=== PATIENT | male | born 2000 | race Two or more races ===

== ENCOUNTER 2023-09-25 18:18 | Emergency (ER) | payer SELFPAY ==
[~2023-09-25] VITALS: Ht 180.3 cm; Wt 68.0 kg
[2023-09-25 18:25] VITALS: TEMP 98.4; O2SAT 99
[2023-09-25] MEDS ORDERED: ASPI1TAB8 PO (21:04)
[2023-09-25] MEDS ORDERED: KETOROLAC 60MG/2ML VIAL IM ONE (21:15)
[2023-09-25 21:39] VITALS: BP 135/95; PULSE 79; RESP 20
== END 2023-09-25 21:44 | disposition home or self-care (01) ==
LOC: ER 18:18
DX: R51.9 Headache, unspecified (principal); R06.02 Shortness of breath; R42 Dizziness and giddiness
CPT/HCPCS: 99283; 96372; J1885

== ENCOUNTER 2025-03-05 18:14 | Emergency (ER) | payer SELFPAY ==
[~2025-03-05] VITALS: Ht 175.3 cm; Wt 75.0 kg
[~2025-03-05 18:14] MED LIST: ASPI1TAB8 PO
[2025-03-05 18:29] VITALS: TEMP 37.2; O2SAT 98
[2025-03-05] MEDS ORDERED: FAMOTIDINE 20MG/2ML VIAL IV STA (20:05)
[2025-03-05] MEDS ORDERED: MORPHINE SULFATE 4 MG/ML INJ (FOR IV/IM USE) IV STA (20:05)
[2025-03-05] MEDS ORDERED: ONDANSETRON HCL 4MG/2ML INJ IV STA (20:05)
[2025-03-05 20:42] LABS: HEMATOCRIT. 45.7 % (42.0-52.0); HEMOGLOBIN. 15.3 g/dL (14.0-18.0); MEAN CORPUSCULAR HEMOGLOBIN 28.7 pg (28.0-32.0); MEAN CORPUSCULAR HGB CONC 33.4 g/dL (31.0-37.0); MEAN CORPUSCULAR VOLUME 85.9 fL (80.0-94.0); RED BLOOD CELL COUNT 5.32 mill/uL (4.7-6.1); RED CELL DISTRIBUTION WIDTH 14.2 % (11.6-14.6)
[2025-03-05 20:43] LABS: DIFFERENTIAL COMMENT 1
[2025-03-05 20:51] LABS: PROTHROMBIN TIME 11.2 sec (9.6-11.0)
[2025-03-05 20:58] LABS: CHLORIDE 103 mEq/L (98-107); POTASSIUM 4.5 mEq/L (3.5-5.1); SODIUM 142 mEq/L (136-145)
[2025-03-05 20:59] LABS: CARBON DIOXIDE 28 mEq/L (21-32)
[2025-03-05 21:00] LABS: CALCIUM 9.6 mg/dL (8.7-10.4)
[2025-03-05 21:04] LABS: CREATININE 0.8 mg/dL (0.6-1.3); GLUCOSE 100 mg/dL (70-105)
[2025-03-05 21:05] LABS: UREA NITROGEN BLOOD 8 mg/dL (9-23)
[2025-03-05 21:06] LABS: ALANINE AMINOTRANSFERASE 19 IU/L (10-49); ALBUMIN 5.1 g/dL (3.2-4.8); ASPARTATE AMINOTRANSFERASE 26 IU/L (<34); PLATELET 251 x1000/uL (130-400)
[2025-03-05 21:07] LABS: BILIRUBIN DIRECT 0.3 mg/dL (<=3.0); PLATELET ESTIMATE NORMAL; PROTEIN TOTAL 7.9 g/dL (6.0-8.3)
[2025-03-05] MEDS ORDERED: MORPHINE SULFATE 4 MG/ML INJ (FOR IV/IM USE) IV SCH (21:45)
[2025-03-05] MEDS: ONDANSETRON HCL 4MG/2ML INJ IV SCH (21:55)
[2025-03-05] MEDS: SODIUM CHLORIDE 0.9% 1,000 ML IV ONE (21:55)
[2025-03-05] MEDS: MORPHINE SULFATE 2 MG/ML INJ (NOT FOR IM USE) IV SCH (21:55)
[2025-03-05] MEDS: FAMOTIDINE 20MG/2ML VIAL IV SCH (22:04)
[2025-03-05] MEDS ORDERED: ONDA-239 PO (22:12)
[2025-03-05 23:22] VITALS: BP 120/64; PULSE 67; RESP 18; O2SAT 100
== END 2025-03-05 23:25 | disposition home or self-care (01) ==
LOC: ER 18:14
DX: R10.13 Epigastric pain (principal); R11.2 Nausea with vomiting, unspecified; Z79.82 Long term (current) use of aspirin; Z79.899 Other long term (current) drug therapy
CPT/HCPCS: 99285; 96374; 76705; 96375; 96361; 80076; 80048; 83690; 85025; 85610; 36415; J1308; J2405; J2270; J7030